=== PATIENT | female | born 1950 | race Asian ===

== ENCOUNTER → 2020-01-26 | Outpatient (CLI) | payer OTHER, MEDICARE ==
[~2020-01-26] MED LIST: DILT120 PO; Doxycycline Mon50 M1 PO; Estradiol0.5 MG PO; LOPE2C PO; PROG100 PO; Zofran8 MG PO
== END | disposition home or self-care (01) ==
LOC: LAB SHORT 18:35 → LAB 18:35
DX: R30.0 Dysuria (principal)
CPT/HCPCS: 87086

== ENCOUNTER → 2020-09-20 | Outpatient (CLI) | payer OTHER, MEDICARE ==
[2020-09-20 20:01] LABS: Creatinine, Blood 0.74 mg/dL (0.40-1.00)
== END | disposition home or self-care (01) ==
LOC: PLD 19:08 → LAB SHORT 19:08
PROVIDERS: Hospitalist
DX: R29.2 Abnormal reflex (principal); R26.89 Other abnormalities of gait and mobility
CPT/HCPCS: 82565; 84520

== ENCOUNTER 2021-08-26 22:45 | Emergency (ER) | payer MEDICARE ==
[~2021-08-26] VITALS: Ht 180.3 cm; Wt 65.8 kg
[2021-08-26 23:59] LABS: Source, Urine Clean Catch
[2021-08-27 00:01] LABS: Bilirubin, Urine Neg (Neg); Blood, Urine 1+ (Neg); Glucose Qualitative, Urine Neg (Neg); Ketones, Urine Neg (Neg); Leukocyte Esterase, Urine 2+ (Neg); Nitrite, Urine Neg (Neg); Protein, Urine Neg (Neg); Specific Gravity, Urine 1.025 (1.003-1.022); Urobilinogen, Urine NORM (Normal)
[2021-08-27 00:09] LABS: Appearance, Urine Hazy (Clear); Bacteria Mod /hpf; Color, Urine Yellow (P-Yellow); Red Blood Cells, Urine Not Seen /hpf (0-2); Squamous Epithelial Cells Mod /hpf (Few); White Blood Cells, Urine 50-100 /hpf (0-5)
[2021-08-27] MEDS ORDERED: SULTRIDS PO (00:27)
[2021-08-27] MEDS ORDERED: ONDA4 PO (00:27)
== END 2021-08-27 01:00 | disposition home or self-care (01) ==
LOC: ER 22:45
PROVIDERS: Emergency Medicine
DX: N39.0 Urinary tract infection, site not specified (principal); Z88.0 Allergy status to penicillin; Z91.013 Allergy to seafood; Z79.899 Other long term (current) drug therapy
CPT/HCPCS: 51798; 81001; 87086; 99283; A9270

== ENCOUNTER → 2021-10-19 | Outpatient (CLI) | payer MEDICARE ==
[~2021-10-19] MED LIST changes: +ONDA4 PO; +SULTRIDS PO
== END | disposition home or self-care (01) ==
LOC: LAB SHORT 11:22
DX: L82.1 Other seborrheic keratosis (principal); D22.62 Melanocytic nevi of left upper limb, including shoulder
CPT/HCPCS: 88305

== ENCOUNTER 2023-04-29 14:30 | Emergency (ER) | payer OTHER ==
[~2023-04-29] VITALS: Ht 177.8 cm; Wt 70.8 kg
[2023-04-29 14:48] VITALS: BP 145/62
== END 2023-04-29 18:46 | disposition home or self-care (01) ==
LOC: ER 14:30
DX: S92.354A Nondisplaced fracture of fifth metatarsal bone, right foot, initial encounter for closed fracture (principal); S32.592A Other specified fracture of left pubis, initial encounter for closed fracture; S92.211A Displaced fracture of cuboid bone of right foot, initial encounter for closed fracture; W01.10XA Fall on same level from slipping, tripping and stumbling with subsequent striking against unspecified object, initial encounter; Z88.0 Allergy status to penicillin; Z91.013 Allergy to seafood; Z79.899 Other long term (current) drug therapy
CPT/HCPCS: 72170; 72192; 73610; 73630; A9270; J1885

== ENCOUNTER → 2023-07-18 | Outpatient (CLI) | payer OTHER | END | disposition home or self-care (01) | LOC: LAB 12:22 → LAB SHORT 12:22 | DX: L82.0 Inflamed seborrheic keratosis (principal) | CPT/HCPCS: 88305 ==